=== PATIENT | female | born 1965 | race American Indian/Alaskan Native ===

== ENCOUNTER 2016-07-04 17:40 | Emergency (ER) | payer OTHER, BC ==
[2016-07-04] MEDS ORDERED: TORADOL IM ONE (21:49)
[2016-07-04] MEDS ORDERED: FLEXERIL PO ONE (21:49)
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
[2016-07-04 22:47] VITALS: BP 134/94
== END 2016-07-04 22:49 | disposition home or self-care (01) ==
LOC: ED 17:40
DX: M79.1 Myalgia (principal); I10 Essential (primary) hypertension; V43.52XA Car driver injured in collision with other type car in traffic accident, initial encounter; Y93.89 Activity, other specified; Y99.8 Other external cause status; Y92.89 Other specified places as the place of occurrence of the external cause
CPT/HCPCS: 96372; 99282; J1885

== ENCOUNTER 2016-12-31 11:00 | Outpatient (CLI) | payer BC | END 2016-12-31 11:01 | disposition home or self-care (01) | LOC: SLR 11:00 | PROVIDERS: ATTEND Internal Medicine | DX: G47.30 Sleep apnea, unspecified (principal); E66.9 Obesity, unspecified | CPT/HCPCS: 95810 ==

== ENCOUNTER 2020-02-17 07:36 | Day surgery (SDC) | payer BC ==
[2020-02-17] MEDS ORDERED: SODIUM CHLORIDE 0.9% 1000 ML 1,000 ML ONE (08:04)
--- NOTE | 2020-02-17 08:10 | Anesthesia Consultation ---
Anesthesia Consult and Med Hx - Cardiovascular System Hx Hypertension: Yes
--- NOTE | 2020-02-17 08:10 | Anesthesia Consultation ---
Anesthesia Consult and Med Hx Date of service: 02/17/20 - Airway Anesthetic Teeth Evaluation: Good ROM Head & Neck: Adequate Mental/Hyoid Distance: Adequate Mallampati Class: Class III Intubation Access Assessment: Possibly Difficult - Cardiac Exam Cardiac Exam: RRR - Pre-Operative Health Status ASA Pre-Surgery Classification: ASA2 Proposed Anesthetic Plan: MAC - Pulmonary Hx Smoking: No Hx Asthma: No Hx Respiratory Symptoms: No (VIKASH) SOB: No COPD: No Home Oxygen Therapy: Yes (CPAP) Hx Sleep Apnea: Yes - Cardiovascular System Hx Hypertension: Yes Hx Coronary Artery Disease: No - Gastrointestinal Hx Ulcer: No Hx Gastroesophageal Reflux Disease: No - Endocrine Hx Insulin Dependent Diabetes: Yes - Other Systems Hx Alcohol Use: No Hx Substance Use: No
--- NOTE | 2020-02-17 08:26 | Anesthesia Day of Surgery ---
Anesthesia Day of Surgery - Day of Surgery Patient Examined: Yes Patient H&P Reviewed: Yes Patient is NPO: Yes Beta Blockers: No
[2020-02-17] MEDS ORDERED: SODIUM CHLORIDE 0.9% 1000 ML 1,000 ML IV SCH (08:30)
[2020-02-17] MEDS ORDERED: propofoL 200 MG/20 ML VIAL IV ONE ×2 (08:38→09:01)
--- NOTE | 2020-02-17 09:35 | Procedure Note ---
Date of procedure: 02/17/20 Pre-op diagnosis: Epigastric Pain/ Colon Polyp Screening/Lower Abdominal Pain Post-op diagnosis: other (Mild to Moderate,Erosive Esophagitis/Small, Hiatal hernia/ Gastritis/R/O Celiac Disease/R/O Proctitis( Non Specific) and R/O Microscopic Colitis and Ileitis/ Proximal Colon diverticuli and Minor, Internal Hemorrhoid) Procedure: EGD with Biopsy/ Colonoscopy with Biopsy Anesthesia: [facility] Surgeon: QING JOYCE Estimated blood loss: minimal Pathology: list Specimen disposition: to lab Condition: stable Disposition: same day (Treat with PPI,prn Bentyl and OTC Probiotics. Avoid aspirin and NSAID; follow up in 1 to 2 weeks ([phone]).)
--- NOTE | 2020-02-17 09:37 | Operative Report ---
PROCEDURE: Colonoscopy. INDICATIONS: This is a 54-year-old -[place] female originally from the [facility] who has a history of NSAID use and has been having abdominal pain and discomfort. EGD had shown [id number] erosive esophagitis, a small hiatal hernia, gastritis and biopsy was also done to rule out for possible celiac disease. Colonoscopy was done as part of colon polyp screening and also to assess for the abdominal pain. DESCRIPTION OF PROCEDURE: Initial rectal exam was unremarkable. Instrument was passed through the rectum onto the cecum, which was identified by the ileocecal valve and the appendiceal orifice. Visualization was fair to good. Terminal ileum was intubated, showed normal mucosa. No endoscopic evidence of ileitis. Biopsy was done to rule out for possible ileitis. There were some diverticula noted in the proximal colon, which was scattered and the patient will be asked to take fiber supplements for that. Random biopsy was done from the cecum, ascending colon, transverse colon, descending colon, and sigmoid. There was no other pathology except for some diverticula noted in the proximal colon. No colon polyps noted. The biopsies were done to rule out for microscopic colitis. The rectum showed some mild inflammation, which may have been nonspecific and biopsy was done to rule out for possible proctitis and the rectum showed minor internal hemorrhoid on the retroverted view. Again, there was minimal bleeding associated with the procedure. No complications associated with the procedure. ASSESSMENT: Colon polyp screening, no colon polyps noted. Abdominal pain, rule out proctitis, possibly nonspecific, rule out microscopic colitis as well as rule out ileitis. There was some proximal colon diverticular disease noted and some minor internal hemorrhoid. There was minimal bleeding associated with the procedure. No complications associated with the procedure. The patient will be asked to avoid aspirin and aspirin-related products for the next few days. The patient will be treated with PPI because of the EGD findings of esophagitis and gastritis as well as Bentyl for the abdominal pain and encouraged to take probiotics and follow up in the office in 1-2 weeks' time. The procedure was done in the GI lab with assistance of the GI lab team, which included Denisa WARE; Darrion melara and with the assistance of anesthesia. JOB# [id number] RENAY/BUSTER
--- NOTE | 2020-02-17 09:40 | Operative Report ---
PROCEDURE: Esophagogastroduodenoscopy with biopsy. INDICATIONS: This is a 54-year-old -[place] female originally from the [facility] who does have a history of NSAID use because of the headaches, has been complaining of some epigastric pain as well as some lower abdominal pain. EGD was done to make sure there was not any associated peptic ulcer disease. DESCRIPTION OF PROCEDURE: Procedure was done after getting informed consent with MAC anesthesia. Instrument was passed through the hypopharynx into the esophagus, which showed mild to moderate distal erosive esophagitis. Biopsy was done from the distal esophagus and the stomach showed a small hiatal hernia and there was some antral gastritis present. Biopsy was done from the gastric antrum, gastric body and angular incisura to rule out for H. pylori and atrophic gastritis. The pylorus was patent. The duodenum in the first and second portion appeared normal. Biopsy was done from the second part to rule out for possible celiac disease. There is minimal bleeding associated with the procedure. No complications associated with the procedure. ASSESSMENT: Epigastric pain, mild to moderate erosive esophagitis, gastritis, small hiatal hernia, rule out celiac disease. PLAN: To treat the patient with PPI, p.r.n. dose of Bentyl, encourage the patient to take probiotics, have the patient avoid aspirin and aspirin-related products for the next few days and to do a colonoscopy for further assessment as part of lower part of colon polyp screening and lower abdominal pain. The patient will be asked to follow up in the office in 1-2 weeks' time. Procedure was done in the GI lab with assistance of the GI lab team, which included RN, Denisa Doty; Darrion melara and with assistance of anesthesia. JOB# [id number] RENAY/BUSTER
[2020-02-17 10:06] VITALS: BP 118/92
--- NOTE | 2020-02-17 10:20 | Post Anesthesia Evaluation ---
- Post Anesthesia Evaluation Patient Participated: Yes Airway Patent: Yes Stable Respiratory Function: Yes Nausea/Vomiting: No Temp > 96.8F: Yes Pain Manageable: Yes Adequeate Hydration: Yes Anesthesia Complications: No Block Receding Appropriately: Not Applicable Patient on Ventilator: No
== END 2020-02-17 10:10 | disposition home or self-care (01) ==
LOC: GIO 07:36
DX: R10.9 Unspecified abdominal pain (principal); R10.30 Lower abdominal pain, unspecified; K57.30 Diverticulosis of large intestine without perforation or abscess without bleeding; K64.8 Other hemorrhoids; R10.13 Epigastric pain; K29.70 Gastritis, unspecified, without bleeding; K44.9 Diaphragmatic hernia without obstruction or gangrene; K21.00 Gastro-esophageal reflux disease with esophagitis, without bleeding; K62.1 Rectal polyp; K29.80 Duodenitis without bleeding; K31.89 Other diseases of stomach and duodenum; K63.89 Other specified diseases of intestine; I10 Essential (primary) hypertension; G47.30 Sleep apnea, unspecified; E11.9 Type 2 diabetes mellitus without complications; Z98.890 Other specified postprocedural states; Z88.8 Allergy status to other drugs, medicaments and biological substances; Z79.899 Other long term (current) drug therapy; Z90.721 Acquired absence of ovaries, unilateral
CPT/HCPCS: 43239; 45380; 82962; 88305; 88342; J2704; J7030